=== PATIENT | male | born 1990 | race Two or more races ===

== ENCOUNTER 2017-10-18 11:17 | Emergency (ER) | payer SELFPAY ==
[~2017-10-18] VITALS: Ht 182.9 cm; Wt 86.2 kg
[2017-10-18 11:31] VITALS: Ht 182.9 cm; Wt 86.2 kg
[2017-10-18 13:54] LABS: BASOPHIL % 0.3 % (0-2); PLATELET COUNT 237 x10^3mcL (130-400); RED CELL DISTRIBUTION WIDTH 13.1 % (11.5-14.5)
[2017-10-18 14:46] LABS: CALCIUM 8.9 mg/dL (8.5-10.1); CARBON DIOXIDE 25.4 mmol/L (21-32); CHLORIDE SERUM 104 mmol/L (98-107); CREATININE SERUM 1.1 mg/dL (0.7-1.3); GFR1 > 60 mL/min; GLUCOSE SERUM 90 mg/dL (74-106); POTASSIUM SERUM 4.2 mmol/L (3.5-5.1); SODIUM SERUM 140 mmol/L (136-145)
[2017-10-18 14:52] LABS: ALBUMIN 4.3 g/dL (3.4-5.0); ALKALINE PHOSPHATASE 51 U/L (46-116); ALT/SGPT 27 U/L (16-63); AST/SGOT 18 U/L (15-37); BILIRUBIN TOTAL 0.4 mg/dL (0.20-1.00); TOTAL PROTEIN, SERUM 7.4 g/dL (6.4-8.2)
[2017-10-18 15:11] VITALS: BP 114/45
[2017-10-18 15:27] LABS: AMPHETAMINE QUAL UR NONE DETECTED (NEG <=1000)
== END 2017-10-18 15:11 | disposition home or self-care (01) ==
LOC: ED 11:17
PROVIDERS: Emergency Medicine
DX: R56.9 Unspecified convulsions (principal); Z91.14 Patient's other noncompliance with medication regimen
CPT/HCPCS: J2060

== ENCOUNTER 2018-02-11 09:50 | Inpatient (IN) | payer OTHER ==
[~2018-02-11] VITALS: Ht 177.8 cm; Wt 87.2 kg
[2018-02-11 10:49] LABS: BASOPHIL % 0.6 % (0-2); PLATELET COUNT 261 x10^3mcL (130-400); RED CELL DISTRIBUTION WIDTH 13.7 % (11.5-14.5)
[2018-02-11 10:54] VITALS: Ht 177.8 cm; Wt 87.2 kg
[2018-02-11 10:59] LABS: CALCIUM 9.6 mg/dL (8.5-10.1); CARBON DIOXIDE 10.5 mmol/L (21-32); CHLORIDE SERUM 104 mmol/L (98-107); CREATININE SERUM 1.6 mg/dL (0.7-1.3); GFR1 56 mL/min; GLUCOSE SERUM 162 mg/dL (74-106); POTASSIUM SERUM 4.3 mmol/L (3.5-5.1); SODIUM SERUM 146 mmol/L (136-145)
[2018-02-11 11:05] LABS: ALBUMIN 4.6 g/dL (3.4-5.0); ALKALINE PHOSPHATASE 61 U/L (46-116); ALT/SGPT 25 U/L (16-63); AST/SGOT 27 U/L (15-37); BILIRUBIN TOTAL 0.27 mg/dL (0.20-1.00)
[2018-02-11 13:19] LABS: CHOLESTEROL/HDL RATIO 3.6; MAGNESIUM 2.2 mg/dL (1.8-2.4); PHOSPHOROUS 4.9 mg/dL (2.5-4.9)
[2018-02-11 13:20] LABS: T3 TOTAL 1.16 ng/mL
[2018-02-11 13:25] LABS: FREE T4 0.88 ng/dL (0.76-1.46); FREE THYROXINE INDEX 2.6 ug/dL (1.4-4.5); T4(THYROXINE) 7.8 ug/dL (4.7-13.3)
[2018-02-11 13:53] VITALS: BP 92/51
[2018-02-11 15:56] VITALS: BP 130/23
[2018-02-11 16:32] LABS: UA SPECIFIC GRAVITY 1.015 (1.005-1.035); microscopic required? YES; urine erythrocyte 3+ (NEGATIVE)
[2018-02-11 16:41] LABS: AMPHETAMINE QUAL UR NONE DETECTED (NEG <=1000)
[2018-02-11 20:21] LABS: PLATELET COUNT 209 x10^3mcL (130-400); RED CELL DISTRIBUTION WIDTH 13.4 % (11.5-14.5)
[2018-02-11 20:22] LABS: BASOPHIL % 0 % (0-2)
[2018-02-11 21:28] LABS: CALCIUM 8.5 mg/dL (8.5-10.1); CHLORIDE SERUM 111 mmol/L (98-107); CREATININE SERUM 1.4 mg/dL (0.7-1.3); GFR1 > 60 mL/min; GLUCOSE SERUM 89 mg/dL (74-106); POTASSIUM SERUM 4.3 mmol/L (3.5-5.1); SODIUM SERUM 146 mmol/L (136-145)
== END 2018-02-11 22:08 | disposition left against medical advice (07) | DRG 53 ==
LOC: ED 09:50 → IC 11:43
PROVIDERS: Emergency Medicine; Family Medicine
DX: G40.909 Epilepsy, unspecified, not intractable, without status epilepticus (principal); N17.0 Acute kidney failure with tubular necrosis; E87.0 Hyperosmolality and hypernatremia; M62.82 Rhabdomyolysis; K72.90 Hepatic failure, unspecified without coma
CPT/HCPCS: 36600; 84439; G0480; J1165; J1200; J1630; J1953; J2060; J2250; J2405; J3486; J3490; J7030; Q0092

== ENCOUNTER 2018-03-20 08:10 | Emergency (ER) | payer OTHER ==
[~2018-03-20] VITALS: Ht 182.9 cm; Wt 77.1 kg
[2018-03-20 08:30] VITALS: Ht 182.9 cm; Wt 77.1 kg
[2018-03-20 09:19] LABS: BASOPHIL % 0.3 % (0-2); PLATELET COUNT 250 x10^3mcL (130-400); RED CELL DISTRIBUTION WIDTH 13.6 % (11.5-14.5)
[2018-03-20 09:38] LABS: CALCIUM 8.4 mg/dL (8.5-10.1); CARBON DIOXIDE 17.2 mmol/L (21-32); CHLORIDE SERUM 105 mmol/L (98-107); CREATININE SERUM 1.4 mg/dL (0.7-1.3); GFR1 > 60 mL/min; GLUCOSE SERUM 168 mg/dL (74-106); POTASSIUM SERUM 3.6 mmol/L (3.5-5.1); SODIUM SERUM 141 mmol/L (136-145)
[2018-03-20 09:43] LABS: ALBUMIN 4.1 g/dL (3.4-5.0); ALKALINE PHOSPHATASE 65 U/L (46-116); ALT/SGPT 44 U/L (16-63); AST/SGOT 22 U/L (15-37); BILIRUBIN TOTAL 0.3 mg/dL (0.20-1.00); TOTAL PROTEIN, SERUM 7.2 g/dL (6.4-8.2)
[2018-03-20 09:44] LABS: AMPHETAMINE QUAL UR NONE DETECTED (NEG <=1000)
[2018-03-20 12:06] LABS: CHOLESTEROL/HDL RATIO 3.1; PHOSPHOROUS 2.7 mg/dL (2.5-4.9)
[2018-03-20 12:19] LABS: FREE T4 0.89 ng/dL (0.76-1.46); FREE THYROXINE INDEX 2.1 ug/dL (1.4-4.5); T4(THYROXINE) 6.2 ug/dL (4.7-13.3)
[2018-03-20 12:32] LABS: UA SPECIFIC GRAVITY 1.025 (1.005-1.035); microscopic required? YES; urine erythrocyte TRACE (NEGATIVE)
[2018-03-20 13:47] VITALS: BP 123/83
[2018-03-20 15:50] LABS: T3 TOTAL 1.29 ng/mL
== END 2018-03-20 13:47 | disposition home or self-care (01) ==
LOC: ED 08:10
PROVIDERS: Emergency Medicine; Family Medicine
DX: G40.501 Epileptic seizures related to external causes, not intractable, with status epilepticus (principal)
CPT/HCPCS: 84439; G0480; J1953; J2060; J3486; J3490; J7030; Q0092

== ENCOUNTER 2020-05-15 14:39 | Emergency (ER) | payer OTHER ==
[~2020-05-15] VITALS: Ht 185.4 cm; Wt 90.7 kg
[2020-05-15 14:40] VITALS: Ht 185.4 cm; Wt 90.7 kg
[2020-05-15 16:43] LABS: BASOPHIL % 0.2 % (0-2); PLATELET COUNT 257 x10^3mcL (130-400); RED CELL DISTRIBUTION WIDTH 13.3 % (11.5-14.5)
[2020-05-15 16:49] LABS: CALCIUM 8.7 mg/dL (8.5-10.1); CARBON DIOXIDE 24.5 mmol/L (21-32); CHLORIDE SERUM 103 mmol/L (98-107); CREATININE SERUM 1.4 mg/dL (0.7-1.3); GFR1 > 60 mL/min; GLUCOSE SERUM 143 mg/dL (74-106); POTASSIUM SERUM 3.7 mmol/L (3.5-5.1); SODIUM SERUM 138 mmol/L (136-145)
[2020-05-15 16:54] LABS: ALBUMIN 4.1 g/dL (3.4-5.0); ALKALINE PHOSPHATASE 41 U/L (46-116); ALT/SGPT 22 U/L (16-63); AST/SGOT 20 U/L (15-37); BILIRUBIN TOTAL 0.3 mg/dL (0.20-1.00); TOTAL PROTEIN, SERUM 6.8 g/dL (6.4-8.2)
[2020-05-15 17:10] VITALS: BP 121/76
== END 2020-05-15 17:10 | disposition left against medical advice (07) ==
LOC: ED 14:39
PROVIDERS: Emergency Medicine
DX: G40.909 Epilepsy, unspecified, not intractable, without status epilepticus (principal)
CPT/HCPCS: G0480; J2250; J7030

== ENCOUNTER 2020-09-06 19:05 | Emergency (ER) | payer OTHER | END 2020-09-06 20:51 | disposition left against medical advice (07) | LOC: ED 19:05 | DX: Z53.21 Procedure and treatment not carried out due to patient leaving prior to being seen by health care provider (principal) ==